=== PATIENT | male | born 1990 | race Caucasian/White ===

== ENCOUNTER 2019-07-19 01:55 | Emergency (ER) | payer SELFPAY ==
[2019-07-19] MEDS ORDERED: Ondansetron PF 4 MG/2 ML Vial ONE (02:21)
[2019-07-19] MEDS ORDERED: Sodium Chloride 0.9% 1,000 ML ONE (02:21)
[2019-07-19 02:52] LABS: Band 8 % (5-11); Eosinophils 1 % (0-10); Hemoglobin 18.1 g/dL (14.0-18.0); Lymphocytes 8 % (21-51); MDiff Complete? YES; Mean Corpuscular HGB CONC 32.2 g/dL (32.0-36.0); Mean Corpuscular Hemoglobin 28.3 pg (27.0-31.0); Mean Corpuscular Volume 87.7 fL (78.0-98.0); Mean Platelet Volume 10.7 fL (7.4-10.4); Monocytes 5 % (0-10); Neutrophil 78 % (42-75); Platelet Count 183 thou/uL (130-400); RBC Distribution Width 11.1 % (11.5-14.5); Red Blood Cell (RBC) Count 6.42 mill/uL (4.70-6.10); White Blood Cell (WBC) Count 19.4 thou/uL (4.8-10.8)
[2019-07-19 02:54] LABS: ALT (SGPT) 28 U/L (8-55); AST (SGOT) 23 U/L (5-34); Albumin 4.9 g/dL (3.5-5.0); Alkaline Phosphatase 66 U/L (40-110); Anion Gap 17 mmol/L (10-20); BUN (Urea Nitrogen) 17 mg/dL (8.9-20.6); Bilirubin, Total 0.5 mg/dL (0.2-1.2); Calc. Creatinine Clearance 0 mL/min (70-130); Calcium 9.7 mg/dL (7.8-10.44); Carbon Dioxide 26 mmol/L (22-29); Chloride 104 mmol/L (98-107); Estimated GFR-MDRD Greater than 90; Globulin 3.1 g/dL (2.4-3.5); Glucose 124 mg/dL (70-105); Lipase 22 U/L (8-78); Potassium 4.4 mmol/L (3.5-5.1); Sodium 143 mmol/L (136-145)
== END 2019-07-19 03:12 | disposition home or self-care (01) ==
LOC: MADERS 01:55
DX: R11.2 Nausea with vomiting, unspecified (principal)
CPT/HCPCS: 80053; 83690; 85025; 96361; 96374; J2405; J7050